=== PATIENT | male | born 1970 | race Caucasian/White ===

== ENCOUNTER 2024-08-14 00:36 | Emergency (ER) | payer OTHER, SELFPAY ==
[2024-08-14 00:42] VITALS: BP 162/91
[2024-08-14 01:14] VITALS: BP 118/87
[2024-08-14 01:16] VITALS: BMI 33.8
--- NOTE | 2024-08-14 01:19 | EDRN ---
When this RN asked pt. how many blood stools pt. has had today, pt. states, 'no, I didn't have blood in my stool, I was walking and noticed blood dripping down my leg and my backside is really sore'. RN will await 's evaluation for further orders
and to assist to perform rectal examination.
--- NOTE | 2024-08-14 01:57 | ED.GENMED ---
History of Present Illness
General
Chief Complaint: Rectal Bleeding
Source: patient
Exam Limitations: none
Time Seen by Provider: 08/14/24 01:34
Nursing documentation reviewed up to this point in time: agreed with
History of Present Illness
History of Present Illness:
53-year-old male presents to the ER for evaluation. Patient reports he had blood leaking down his leg prior to arrival and when he wiped he noted bright red blood.
Patient denies any abdominal pain. He does note that he has had some rectal soreness recently with moving his bowels. He denies straining.
He is not on blood thinners. He does not have a family doctor.
He denies fever chills nausea vomiting
Review of Systems
Review of Systems
Allergies reviewed?: Yes
All Other Systems: ROS reviewed and negative except as documented in HPI and ROS
Constitutional: Reports no symptoms
ABD/GI: Reports other (Noted rectal bleeding prior to arrival); Denies nausea, vomiting, diarrhea or constipated
Musculoskeletal: Reports no symptoms
Skin: Reports no symptoms
Neurological: Reports no symptoms
Psychiatric: Reports no symptoms
Phy Exam
General Physical Exam
General Presentation: no apparent distress
General age: appears stated age
General Skin: warm and dry
General Habitus: normal
General Mental: alert
General Hydration: appears well hydrated
Gastrointestinal Exam
Gastrointestinal Exam: non tender, soft and other (Patient with external hemorrhoid no active bleeding)
Neurological Exam
Neurological Exam: alert and oriented x3
Musculoskeletal Exam
Musculoskeletal Exam: full ROM
Skin Exam
Skin Exam: normal color and warm/dry
Psychiatric Exam
Psychiatric Exam: normal mood/affect
Course
Orders/Labs/Results
Orders:
08/14/24 01:29
08/14/24 01:29
Vital Signs
Initial and Last Documented VS:
Initial Vital Signs
Temp Pulse Resp BP Pulse Ox
98.1 F 102 16 162/91 99
08/14/24 00:42 08/14/24 00:42 08/14/24 00:42 08/14/24 00:42 08/14/24 00:42
Last Documented Vital Signs
Temp Pulse Resp BP Pulse Ox
98.1 F 75 18 107/64 98
08/14/24 00:42 08/14/24 02:00 08/14/24 02:00 08/14/24 02:00 08/14/24 02:00
MDM/Problems Addressed
Differential Diagnosis Includes:
Not limited to GI bleed, hemorrhoid
MDM/Problems Addressed:
Patient with external hemorrhoid no acute distress will DC with colorectal follow-up with prescription for Anusol
*Critical Care Note
Total Time (30-74mins, 75-104mins- exclusive of procedures): Not Applicable
ED Attending Note
-
Portions of this chart may have been created with voice recognition software.� Occasional wrong word or��sound alike� substitutions may have occurred due to the inherent limitations of voice recognition software.
Discharge Plan
Departure
Patient Disposition: Home (Routine Discharge)
Date of Disposition: 08/14/24
Time of Disposition: 02:01
Patient with high blood pressure during this ER visit?: Yes
Condition: Fair
Covid-19: Not Applicable
Discharge Problem:
External hemorrhoids
Instructions: Hemorrhoids (DC), BLOOD PRESSURE
Prescriptions:
New
hydrocortisone [Procto-Med HC] 2.5 % cream with perineal applicator
1 applic CO DAILY Qty: 30 0RF
Referrals:
[facility] [Provider Group]
[facility] [Outside]
Shmuel Brower MD [Active] -
UNKNOWN - PT DOES,NOT KNOW [Family Provider] -
Activity Restrictions/Additional Instructions:
As discussed a prescription was sent to your pharmacy; use as directed.
You may take [id number] Colace (stool softener )
Follow-up with colorectal surgery please call tomorrow to make an appointment soon as possible. In addition you were given [facility] for outpatient follow-up. Return if any worsening of symptoms
Interventions
Interventions:
*Risk Screen - Suicide Last Done: 08/14/24 00:42
*General Assessment Last Done: 08/14/24 01:13
*Neglect/Abuse Screening Last Done: 08/14/24 01:13
*ED- Fall Risk Assessment Last Done: 08/14/24 01:13
*ED COVID-19 Vaccine History Last Done: 08/14/24 01:13
*Nursing Disposition Last Done: 08/14/24 02:00
JU-Seqzap-Mcuenbgxoi Assessment Last Done: 08/14/24 02:30
ED- Cardiac Assessment Last Done: 08/14/24 02:30
ED- Pulmonary Assessment Last Done: 08/14/24 02:30
Discharge Date and Time
Discharge Date/Time: 08/14/24 02:33
Print Language: HEBREW
[2024-08-14 02:00] VITALS: BP 107/64
== END 2024-08-14 02:33 | disposition home or self-care (01) ==
LOC: EMR 00:36
PROVIDERS: EMERGENCY PHYSICIAN Emergency Medicine
DX: K64.4 Residual hemorrhoidal skin tags (principal)
CPT/HCPCS: 99282